=== PATIENT | female | born 1970 | race Hispanic/Latino ===

== ENCOUNTER → 2018-10-18 | Day surgery (SDC) | payer OTHER ==
[~2018-10-18] MED LIST: CEFDINIR125 MG/5 M PO; DEXTROMETHORPHAN PO; FENTANYL CITRATE/PF 100MCG/2 ML INJ ONE; MIDAZOLAM HCL 5MG/ML 2ML VIAL ONE; OMEPRAZOLE40 MG PO; PROMETHAZINE PO; PROPOFOL IV EMULSION 10 MG/ML 50 ML VIAL ONE
--- OUTSIDE RECORDS SUMMARY | 2018-10-18 05:42 | XMS REPORT | Clinical Summary ---
Author Author [facility] Organization [facility] Address Unknown Phone Unavailable Care Team Providers Care Firefighting Equipment Specialist Name Role Phone PCP Unavailable Allergies Active Allergy Reactions Severity Noted Date Comments No Known Allergies 12/09/2008 Current Medications Prescription Sig. Disp. Refills Start End Date Status Date Compression Socks, Large by Misc.(Non-Drug; Combo 2 Each 0 12/30/19 Active Misc Route) route. 17 Active Problems Problem Noted Date Vitamin D deficiency 07/01/2009 Unspecified gastritis and gastroduodenitis without mention of hemorrhage 03/24/2009 RUQ pain 12/09/2008 Encounters Date Type Specialty Care Team Description 02/23/2017 [facility] Radiology Rigo Petit, DO Encounter 12/29/2016 Hospital Lab Rigo Petit, DO Encounter 12/29/2016 Office Visit Internal Medicine Rigo Petit, DO Healthcare maintenance Sharona Muir (Primary Dx); J, ResidentMD Bilateral swelling of feet; Dysuria after 08/30/2016 Immunizations Name Dates Previously Given Next Due Influenza A (H1N1) Vac 03/24/2009 Injection Influenza Vaccine 12/25/2008 Tdap Tetanus, diphtheria, 06/26/2009 acellular pertussis Vaccine Family History Medical History Relation Name Comments Cancer Maternal Aunt breast cancer Diabetes Maternal Grandmother Diabetes Mother Hypertension Mother Relation Name Status Comments Brother Alive Brother Alive Daughter Alive Father Alive Maternal Aunt Maternal Grandfather Alive Maternal Grandmother Mother Alive Paternal Grandfather Paternal Grandmother Sister Alive Son Alive Son Alive Son Other Social History Tobacco Use Types Packs/Day Years Used Date Former Smoker Cigarettes 0.5 10 Comments: quit in 1998 smoked for 10 years off and on Alcohol Use Drinks/Week oz/Week Comments No Sex Assigned at Date Recorded Not on file Last Filed Vital Signs Vital Sign Reading Time Taken Blood Pressure 121/81 12/29/2016 1:21 PM CDT Pulse 92 12/29/2016 1:21 PM CDT Temperature 36.7 C (98.1 F) 12/29/2016 1:21 PM CDT Respiratory Rate 18 12/29/2016 1:21 PM CDT Oxygen Saturation - - Inhaled Oxygen - - Concentration Weight 90 kg (198 lb 8 oz) 12/29/2016 1:21 PM CDT Height 160 cm (5' 3") 12/29/2016 1:21 PM CDT Body Mass Index 35.16 12/29/2016 1:21 PM CDT Plan of Treatment Health Maintenance Due Date Last Done Comments CERVICAL CANCER SCRN (3 10/05/1992 YRS) BREAST CANCER SCRN 02/23/2018 02/23/2017 (YEARLY) Results * MAMMOGRAM BILAT SCREEN DIGITAL (02/23/2017 2:26 PM) Specimen Performing Laboratory SMS Impressions IMPRESSION: NEGATIVE There is no mammographic evidence of malignancy. A 1 year screening mammogram is recommended. I have reviewed the study and agree with the findings in the report. This document has been electronically signed. John garcia,ronald/kavin:02/23/2017 14:52:23 Stock Roller: Patricia KELLEY(R)(M), [facility] letter sent: Mammography Normal Mammogram BI-RADS: 1 Negative G0202 Z12.31 Narrative #[id number] - MAMMOGRAM BILAT SCREEN DIGITAL BILATERAL FIRST EVER DIGITAL SCREENING MAMMOGRAM 3D/2D WITH CAD: 02/23/2017 CLINICAL: 46 y/o female Maternal aunt with history of breast cancer.Screening. No prior exams were available for comparison. The tissue of both breasts is heterogeneously dense. This may lower the sensitivity of mammography. Tomosynthesis was used. Current study was also evaluated with a Computer Aided Detection (CAD) system. No significant masses, calcifications, or other findings are seen in either breast. There has been no significant interval change. Procedure Note Interface, Rad/Mammog In - 02/24/2017 7:14 AM CHEF & OWNER #[id number] - MAMMOGRAM BILAT SCREEN DIGITAL BILATERAL FIRST EVER DIGITAL SCREENING MAMMOGRAM 3D/2D WITH CAD: 02/23/2017 CLINICAL: 46 y/o female Maternal aunt with history of breast cancer.Screening. No prior exams were available for comparison. The tissue of both breasts is heterogeneously dense. This may lower the sensitivity of mammography. Tomosynthesis was used. Current study was also evaluated with a Computer Aided Detection (CAD) system. No significant masses, calcifications, or other findings are seen in either breast. There has been no significant interval change. IMPRESSION IMPRESSION: NEGATIVE There is no mammographic evidence of malignancy. A 1 year screening mammogram is recommended. I have reviewed the study and agree with the findings in the report. This document has been electronically signed. John garcia,ronald/kavin:02/23/2017 14:52:23 Stock Roller: Patricia Christianson RT(R)(M), [facility] letter sent: Mammography Normal Mammogram BI-RADS: 1 Negative G0202 Z12.31 * HIV-1/HIV-2 ROUTINE SCREENING (12/29/2016 2:03 PM) Component Value Ref Range HIV-1/HIV-2 Negative NEG Specimen Performing Laboratory MISYS * HEMOGLOBIN A1C (12/29/2016 2:03 PM) Component Value Ref Range Hemoglobin A1c 5.2 4.3 - 6.1 % Est Average Gluc 102.5 mg/dL Specimen Performing Laboratory Blood MISYS * COMPREHENSIVE METABOLIC PANEL(DBIL NOT INCLUDED) (12/29/2016 2:03 PM) Component Value Ref Range Albumin 3.8 3.4 - 5.0 g/dL Calcium 8.8 8.50 - 10.20 mg/dL CO2 27 21 - 32 mmol/L Chloride 106 98 - 107 mmol/L Creatinine 0.65 0.60 - 1.30 mg/dL Glucose 98 70 - 99 mg/dL Alk Phos 99 45 - 117 U/L Potassium 3.9 3.50 - 5.10 mmol/L Sodium 139 136 - 145 mmol/L ALT 28 12 - 78 U/L AST 15 15 - 37 U/L Urea Nitrogen 14 7 - 18 mg/dL T Bilirubin 0.9 0.2 - 1.0 mg/dL T Protein 7.2 6.4 - 8.2 g/dL GFR, Estimated >60 mL/min/1.73 m2 GFR, Estim, Afr-Am >60 mL/min/1.73 m2 Anion Gap 6 Specimen Performing Laboratory Blood MISYS * TSH (12/29/2016 2:03 PM) Component Value Ref Range TSH 0.56 0.36 - 3.74 uIU/mL Specimen Performing Laboratory Blood MISYS * LIPID PROFILE (12/29/2016 2:03 PM) Component Value Ref Range Cholesterol 201 (H) <200 mg/dL Comment: REFERENCE RANGE: Desirable: <200 mg/dL Borderline: 200-240 mg/dL High Risk: >240 mg/dL Triglyceride 101 <150 mg/dL Comment: REFERENCE RANGE: Normal: <150 mg/dL Borderline High: 150-199 mg/dL High: 200-499 mg/dL Very High: >zx=686 mg/dL HDL 73 (H) 40 - 60 mg/dL Comment: Increased CHD risk: <40 mg/dL Decreased CHD risk: >60 mg/dL LDL 108 mg/dL Comment: REFERENCE RANGE: Optimal: <100 mg/dL Near Optimal: 100-129 mg/dL Borderline High: 130-159 mg/dL High: 160-189 mg/dL Very High: >iu=691 mg/dL Specimen Performing Laboratory Blood MISYS * HEPATITIS PANEL (12/29/2016 2:03 PM) Component Value Ref Range HCV IgG Negative NEG HBsAg Negative NEG HAV, IgM Negative NEG HBcAb, IgM Negative NEG Specimen Performing Laboratory Blood MISYS * CBC/DIFF (12/29/2016 2:03 PM) Component Value Ref Range WBC 7.1 4.5 - 11.0 K/uL RBC 4.31 4.20 - 5.40 M/uL Hemoglobin 11.7 (L) 12.0 - 16.0 g/dL Hematocrit 38.1 37.0 - 47.0 % MCV 88 82 - 92 fL MCH 27.1 27.0 - 32.0 pg MCHC 30.7 (L) 32.0 - 36.0 g/dL RDW 43.9 36.4 - 46.3 fL Platelet 271 150 - 400 K/uL Mean Platelet Volume 11.0 9.4 - 12.4 fL Percent NRBC 0.6 Absolute NRBC 0.04 Neutrophil 54.4 34.0 - 70.0 % Lymphocyte 36.5 20.0 - 50.0 % Monocyte 6.9 5.0 - 12.0 % Eosinophil 1.0 0.7 - 5.0 % Basophil 0.8 0.1 - 1.2 % Pct Immat Gran 0.4 0.0 - 0.5 Neutrophil, Abs 3.86 1.56 - 6.13 K/uL Lymphocyte, Abs 2.59 1.18 - 3.74 K/uL Monocyte, Abs 0.49 (H) 0.24 - 0.36 K/uL Eosinophil, Abs 0.07 0.04 - 0.36 K/uL Basophil, Abs 0.06 0.01 - 0.08 K/uL Absol Immat Gran 0.03 0.00 - 0.03 K/uL Specimen Performing Laboratory Blood MISYS * UA CHEMISTRIES (12/29/2016 1:50 PM) Component Value Ref Range Color Yellow Clarity Clear Spec [place] 1.017 1.001 - 1.035 pH 6.0 5 - 8 Protein Negative NEG Glucose Negative NEG Ketone Negative NEG Bilirubin Negative NEG Nitrate Negative NEG Urobilinogen <1.0 0.2 - 1.0 EU/dL Leukocyte Negative NEG Blood 1+ (A) NEG WBC 1 0 - 5 /HPF Bacteria Few Epithelial Cell 3 /HPF Mucous Present Specimen Performing Laboratory Urine MISYS * URINE CULTURE (12/29/2016 1:50 PM) Component Value Ref Range Spec Description Clean catch urine Order Comments None Culture 1,000-10,000 CFU/ml Streptococcus beta hemolytic, group B Mixed uro-genital matt also present Report Status Final 12/31/2016 Specimen Performing Laboratory Urine clean catch - CLEAN MISYS CATCH URINE after 08/30/2016
--- OUTSIDE RECORDS SUMMARY | 2018-10-18 05:42 | XMS REPORT | Summary of Care ---
Author Author [facility] Organization [facility] Address Unknown Phone Unavailable Encounter HQ Dajuan(FIN) [id number] Date(s): 10/03/17 - 10/03/17 [facility] [address] [place], [place] [address]- [phone] Encounter Diagnosis Upper back pain (Discharge Diagnosis) - 10/03/17 Back muscle spasm (Discharge Diagnosis) - 10/03/17 Muscle spasm of back (Final) - 10/09/17 Pain in thoracic spine (Final) - Discharge Disposition: Home or Self Care Attending Physician: Donna Garcia MD Vital Signs Most recent to 1 2 oldest [Reference Range]: Height 160.02 cm (10/03/17 2:13 PM) Temperature Oral 97.1 DegF [96.4-99.1 DegF] (10/03/17 2:13 PM) Blood Pressure 119/72 mmHg 115/82 mmHg [90-140/60-90 mmHg] (10/03/17 3:50 PM) (10/03/17 2:13 PM) Respiratory Rate 18 BRMIN 18 BRMIN [14-20 BRMIN] (10/03/17 3:50 PM) (10/03/17 2:13 PM) Peripheral Pulse 70 bpm 84 bpm Rate [60-100 bpm] (10/03/17 3:50 PM) (10/03/17 2:13 PM) Weight 95.455 kg (10/03/17 2:13 PM) Body Mass Index 37.28 m2 (10/03/17 2:13 PM) Problem List No data available for this section Allergies, Adverse Reactions, Alerts Substance Reaction Severity Status NKDA Active Medications Flexeril 10 mg oral tablet 10 mg=1 tab, PO, QPM, PRN for spasm, X 10 day, # 10 tab, 0 Refill(s) Start Date: 10/03/17 Stop Date: 10/13/17 Status: Completed ibuprofen 800 mg oral tablet 800 mg=1 tab, PO, Q8H, X 5 day, # 15 tab, 0 Refill(s) Start Date: 10/03/17 Stop Date: 10/08/17 Status: Completed ketOROLAC 60 mg, 2 mL, Route: IM, Drug form: INJ, ONCE, Dosing Weight 95.455, kg, Priority : STAT, Start date: 10/03/17 14:36:00 CDT, Stop date: 10/03/17 14:36:00 CDT Notes: (Same as:Toradol) IV bolus must be given >15 seconds. Give IM administration slowly and deeply into the muscle.Not for use > 4 days MEDICATION WASTE Product Size: 60 mgProduct Wasted: ___ mg Start Date: 10/03/17 Stop Date: 10/03/17 Status: Completed Results No data available for this section Immunizations No data available for this section Procedures No data available for this section Social History Social History Type Response Smoking Status Never smoker; Exposure to Tobacco Smoke None; Cigarette Smoking Last 365 Days No; Reg Smoking Cessation Counseling No entered on: 10/03/17 Assessment and Plan No data available for this section
--- OUTSIDE RECORDS SUMMARY | 2018-10-18 05:42 | XMS REPORT | Summary of Care ---
Author Author [facility] Organization [facility] Address Unknown Phone Unavailable Encounter HQ Dajuan(FIN) [id number] Date(s): 10/03/17 - 10/03/17 [facility] [address] [place], [place] [address]- [phone] Encounter Diagnosis Upper back pain (Discharge Diagnosis) - 10/03/17 Back muscle spasm (Discharge Diagnosis) - 10/03/17 Discharge Disposition: Home or Self Care Attending [...] Start Date: 10/03/17 Stop Date: 10/13/17 Status: Ordered ibuprofen 800 mg oral tablet 800 mg=1 tab, PO, Q8H, X 5 day, # 15 tab, 0 Refill(s) Start Date: 10/03/17 Stop Date: 10/08/17 Status: Ordered ketOROLAC 60 mg, 2 mL, Route: IM, [...]
--- OUTSIDE RECORDS SUMMARY | 2018-10-18 05:42 | XMS REPORT | Clinical Summary ---
Author Author [facility] Organization [facility] Address Unknown Phone Unavailable Care Team Providers Care Load Out Person Name Role Phone PCP Unavailable Allergies Active [...] Date Type Specialty Care Team Description 02/23/2017 [facility] Radiology Rigo Petit, DO Encounter 12/29/2016 Hospital Lab Rigo Petit, DO Encounter 12/29/2016 Office Visit Internal Medicine Rigo Petit, DO Healthcare maintenance Sharona Muir (Primary Dx); J, ResidentMD Bilateral swelling of feet; Dysuria after 08/29/2016 Immunizations Name Dates Previously Given Next Due [...] has been electronically signed. John garcia,ronald/kavin:02/23/2017 14:52:23 Data Analytics Architect: Patricia KELLEY(R)(M), [facility] letter sent: Mammography Normal Mammogram BI-RADS: 1 Negative G0202 Z12.31 Narrative #[id number] - MAMMOGRAM BILAT SCREEN DIGITAL BILATERAL FIRST [...] Interface, Rad/Mammog In - 02/24/2017 7:14 AM AIRLINE SECURITY REPRESENTATIVE #[id number] - MAMMOGRAM BILAT SCREEN DIGITAL BILATERAL FIRST [...] has been electronically signed. John garcia,ronald/kavin:02/23/2017 14:52:23 Data Analytics Architect: Patricia Christianson RT(R)(M), [facility] letter sent: Mammography Normal [...] 150-199 mg/dL High: 200-499 mg/dL Very High: >zt=678 mg/dL HDL 73 (H) 40 - 60 mg/dL Comment: Increased CHD risk: <40 mg/dL Decreased CHD risk: >60 mg/dL LDL 108 mg/dL Comment: REFERENCE RANGE: Optimal: <100 mg/dL Near Optimal: 100-129 mg/dL Borderline High: 130-159 mg/dL High: 160-189 mg/dL Very High: >ce=219 mg/dL Specimen Performing Laboratory Blood MISYS * [...] Ref Range Color Yellow Clarity Clear Spec [place] 1.017 1.001 - 1.035 pH 6.0 5 [...] catch - CLEAN MISYS CATCH URINE after 08/29/2016
--- OUTSIDE RECORDS SUMMARY | 2018-10-18 05:42 | XMS REPORT | Summary of Care ---
Author Author [facility] [place] Organization [facility] [place] Address Unknown Phone Unavailable Encounter HQ Encntr_alias(FIN) [id number] Date(s): 05/19/17 - 05/19/17 [facility] Outpatient Imaging summer [address] [place], [place] [address] [id number] Encounter Diagnosis Unspecified internal derangement of left knee (Final) - 05/25/17 Chondromalacia, left knee (Final) - Discharge Disposition: Home or Self Care Attending Physician: Ike Jones MD Vital Signs No data available for this section Problem List No data available for this section Allergies, Adverse Reactions, Alerts Substance Reaction Severity Status NKDA Active Medications No data available for this section Results No data available for this section [...]
--- OUTSIDE RECORDS SUMMARY | 2018-10-18 05:42 | XMS REPORT | Summary of Care ---
Author Author [facility] Organization [facility] [place] Address Unknown Phone Unavailable Encounter HQ Zoyar_[email or web address](FIN) [id number] Date(s): 06/06/17 - 06/06/17 [facility] [place] Attending Physician: Khari Ledbetter MD Vital Signs No data available for this section Problem List No data available for this section Allergies, Adverse Reactions, Alerts Substance Reaction Severity Status NKDA Active Medications No data available for this section Results No data available for this section Immunizations No data available for this section Procedures No data available for this section Social History No data available for this section Assessment and Plan No data available for this section
--- OUTSIDE RECORDS SUMMARY | 2018-10-18 05:42 | XMS REPORT | Clinical Summary ---
Author Author [facility] Organization [facility] Address Unknown Phone Unavailable Care Team Providers Care Hoop Bender Tank Name Role Phone PCP Unavailable Allergies Active [...] Date Type Specialty Care Team Description 02/23/2017 [facility] Radiology Rigo Petit, DO Encounter 12/29/2016 Hospital Lab Rigo Petit, DO Encounter 12/29/2016 Office Visit Internal Medicine Rigo Petit, DO Healthcare maintenance Sharona Muir (Primary Dx); J, ResidentMD Bilateral swelling of feet; Dysuria after 09/09/2016 Immunizations Name Dates Previously Given Next Due [...] has been electronically signed. John garcia,ronald/kavin:02/23/2017 14:52:23 Tours Hostess: Patricia KELLEY(R)(M), [facility] letter sent: Mammography Normal Mammogram BI-RADS: 1 Negative G0202 Z12.31 Narrative #[id number] - MAMMOGRAM BILAT SCREEN DIGITAL BILATERAL FIRST [...] Interface, Rad/Mammog In - 02/24/2017 7:14 AM TIN PLATER #[id number] - MAMMOGRAM BILAT SCREEN DIGITAL BILATERAL FIRST [...] has been electronically signed. John garcia,ronald/kavin:02/23/2017 14:52:23 Tours Hostess: Patricia Christianson RT(R)(M), [facility] letter sent: Mammography [...] 150-199 mg/dL High: 200-499 mg/dL Very High: >rp=624 mg/dL HDL 73 (H) 40 - 60 mg/dL Comment: Increased CHD risk: <40 mg/dL Decreased CHD risk: >60 mg/dL LDL 108 mg/dL Comment: REFERENCE RANGE: Optimal: <100 mg/dL Near Optimal: 100-129 mg/dL Borderline High: 130-159 mg/dL High: 160-189 mg/dL Very High: >op=509 mg/dL Specimen Performing Laboratory Blood MISYS * [...] Ref Range Color Yellow Clarity Clear Spec [place] 1.017 1.001 - 1.035 pH 6.0 5 [...] catch - CLEAN MISYS CATCH URINE after 09/09/2016
--- OUTSIDE RECORDS SUMMARY | 2018-10-18 05:42 | XMS REPORT | Continuity of Care Document ---
Author Author [facility] Organization [facility] Address Unknown Phone Unavailable Care Team Providers Care School Aide Name Role Phone [facility] Unavailable Unavailable Problems Problem Status Onset Date Classification Date Reported Comments Source Muscle spasm of back 10/10/2017 04/22/2018 [facility] Upper back pain 10/03/2017 04/22/2018 [facility] Back muscle spasm 10/03/2017 04/22/2018 [facility] BACK PAIN Active 10/03/2017 [facility] LFT KNEE Active 05/30/2017 [facility] Unspecified internal derangement of left knee 05/26/2017 [facility]/12/[facility] M23.92 - UNSPECIFIED INTERNAL DERANGEME Active 05/02/2017 [facility] [employer] Vitamin D deficiency Active 07/01/2009 Problem 10/17/2017 [facility] Unspecified gastritis and gastroduodenitis without mention of hemorrhage Active 03/24/2009 Problem 10/17/2017 [facility] RUQ pain Active 12/09/2008 Problem 10/17/2017 [facility] Chondromalacia, left knee 04/12/2018 [facility] Pain in thoracic spine 04/22/2018 [facility] Medications Medication Details Route Status Patient Instructions Ordering Provider Order Date Source ibuprofen 800 mg oral tablet 800 mg=1 tab, PO, Q8H, X 5 day, # 15 tab, 0 Refill(s) No Longer Active 10/03/2017 [facility] Cyclobenzaprine hydrochloride 10 MG Oral Tablet [Flexeril] 10 mg=1 tab, PO, QPM, PRN for spasm, X 10 day, # 10 tab, 0 Refill(s) No Longer Active 10/03/2017 [facility] Ketorolac 60 mg, 2 mL, Route: IM, Drug form: INJ, ONCE, Dosing Weight 95.455, kg, Priority: STAT, Start date: 10/03/17 14:36:00 CDT, Stop date: 10/03/17 14:36:00 CDTNotes: (Same as:Toradol) IV bolus must be given >15 seconds. Give IM administration slowly and deeply into the muscle. Not for use > 4 days MEDICATION WASTE Product Size: 60 mg Product Wasted: ___ mg Inactive 10/03/2017 [facility] Compression Socks, Large Misc by Misc.(Non-Drug; Combo Route) route. Active 12/29/2016 [facility] Allergies, Adverse Reactions, Alerts No Known Medication Allergies Immunizations Immunization Date Given Site Status Last Updated Comments Source Tdap Tetanus, diphtheria, acellular pertussis Vaccine 06/26/2009 completed [facility] Influenza A (H1N1) Vac Injection 03/24/2009 completed [facility] Influenza Vaccine 12/25/2008 completed [facility] Results Order Name Results Value Reference Range Date Interpretation Comments Source MAMMOGRAM BILAT SCREEN DIGITAL <p>IMPRESSION: NEGATIVE</p><p>There is no mammographic evidence of malignancy. A 1 year </p><p>screening mammogram is recommended.</p><p> </p><p>I have reviewed the study and agree with the findings in the </p><p>report.</p><p> </p><p>This document has been electronically signed.</p><p> </p><p>John Pina</ p><p>ronald garcia/kavin:02/23/2017 14:52:23</p><p> </p><p>Engraver Letter: Patricia TURNER)(M), [facility]</p><p> Breast Imaging Center</p><p>letter sent: Mammography Normal</p><p>Mammogram BI-RADS: 1 Negative G0202 Z12.31</p> IMPRESSION: NEGATIVEThere is no mammographic evidence of malignancy. A 1 year screening mammogram is recommended. I have reviewed the study and agree with the findings in the report. This document has been electronically signed. ronald Delong/kavin:02/23/2017 14:52:23 Engraver Letter: Patricia TURNER)(M), [facility] Centerletter sent: Mammography NormalMammogram BI-RADS: 1 Negative G0202 Z12.31 02/23/2017 [facility] MAMMOGRAM BILAT SCREEN DIGITAL <p> </p><p>#[id number] - MAMMOGRAM BILAT SCREEN DIGITAL</p><p>BILATERAL FIRST EVER DIGITAL SCREENING MAMMOGRAM 3D/2D WITH CAD: </p><p>02/23/2017</p><p>CLINICAL: 46 y/o female Maternal aunt with history of breast </p><p>cancer.Screening.</p><p> </p><p>No prior exams were available for comparison.</p><p>The tissue of both breasts is heterogeneously dense. This may </p><p>lower the sensitivity of mammography.</p><p>Tomosynthesis was used.</p><p>Current study was also evaluated with a Computer Aided Detection </p><p>(CAD) system.</p><p>No significant masses, calcifications, or other findings are seen </p><p>in either breast.</p><p>There has been no significant interval change.</p><p> </p> #[id number] - MAMMOGRAM BILAT SCREEN DIGITALBILATERAL FIRST EVER DIGITAL SCREENING MAMMOGRAM 3D/2D WITH CAD: 02/23/2017CLINICAL: 46 y/o female Maternal aunt with history of breast cancer.Screening. No prior exams were available for comparison.The tissue of both breasts is heterogeneously dense. This may lower the sensitivity of mammography.Tomosynthesis was used.Current study was also evaluated with a Computer Aided Detection (CAD) system.No significant masses, calcifications, or other findings are seen in either breast.There has been no significant interval change. 02/23/2017 [facility] MAMMOGRAM BILAT SCREEN DIGITAL <p styleCode="header">Interface, Rad/Mammog In - 02/24/2017 7:14 AM [employer]</p><p>
<span>#[id number] - MAMMOGRAM BILAT SCREEN DIGITAL</span>
<span>BILATERAL FIRST EVER DIGITAL SCREENING MAMMOGRAM 3D/2D WITH CAD: </span>
<span&gt ;02/23/2017</span>
<span>CLINICAL: 46 y/o female Maternal aunt with history of breast </span>
<span>cancer.Screening. </span>

<span>No prior exams were available for comparison. </span>
<span>The tissue of both breasts is heterogeneously dense. This may </span>
<span>lower the sensitivity of mammography. </span>
<span>Tomosynthesis was used. </span>
<span>Current study was also evaluated with a Computer Aided Detection </span>
<span>(CAD) system. </span>
<span>No significant masses, calcifications, or other findings are seen </span>
<span>in either breast. </span>
<span>There has been no significant interval change.</span>

<span>IMPRESSION</span>
<span>IMPRESSION: NEGATIVE</span>
<span>There is no mammographic evidence of malignancy. A 1 year </span>
<span>screening mammogram is recommended. </span>

<span>I have reviewed the study and agree with the findings in the </span>
<span>report.</span>

<span>This document has been electronically signed.</span>

<span>John Pina</span>
<span>ronald garcia/kaivn:02/23/2017 14:52:23 </span>

<span>Engraver Letter: Patricia KELLEY(R)(M), [facility]</span>
<span> Breast Imaging Center</span>
<span>letter sent: Mammography Normal </span>
<span>Mammogram BI-RADS: 1 Negative G0202 Z12.31</span></p> Interface, Rad/Mammog In - 02/24/2017 7:14 AM [employer] #[id number] - MAMMOGRAM BILAT SCREEN DIGITAL BILATERAL FIRST [...] has been electronically signed. John garcia,ronald/kavin:02/23/2017 14:52:23 Engraver Letter: Patricia KELLEY(R)(M), [facility] letter sent: Mammography Normal Mammogram BI-RADS: 1 Negative G0202 Z12.31 02/23/2017 [facility] CBC/DIFF WBC 7.1 4.5 - 11 12/29/2016 [facility] CBC/DIFF RBC 4.31 M/uL 4.20 - 5.40 12/29/2016 [facility] CBC/DIFF Hemoglobin 11.7 12 - 16 12/29/2016 Low [facility] CBC/DIFF Hematocrit 38.1 37 - 47 12/29/2016 [facility] CBC/DIFF MCV 88 82 - 92 12/29/2016 [facility] CBC/DIFF MCH 27.1 27 - 32 12/29/2016 [facility] CBC/DIFF MCHC 30.7 32 - 36 12/29/2016 Low [facility] CBC/DIFF RDW 43.9 36.4 - 46.3 12/29/2016 [facility] CBC/DIFF Platelet 271 150 - 400 12/29/2016 [facility] CBC/DIFF Mean Platelet Volume 11.0 9.4 - 12.4 12/29/2016 [facility] CBC/DIFF Percent NRBC 0.6 12/29/2016 [facility] CBC/DIFF Absolute NRBC 0.04 12/29/2016 [facility] CBC/DIFF Neutrophil 54.4 34 - 70 12/29/2016 [facility] CBC/DIFF Lymphocyte 36.5 20 - 50 12/29/2016 [facility] CBC/DIFF Monocyte 6.9 5 - 12 12/29/2016 [facility] CBC/DIFF Eosinophil 1.0 0.7 - 5 12/29/2016 [facility] CBC/DIFF Basophil 0.8 0.1 - 1.2 12/29/2016 [facility] CBC/DIFF Pct Immat Gran 0.4 0.0 - 0.5 12/29/2016 [facility] CBC/DIFF Neutrophil, Abs 3.86 1.56 - 6.13 12/29/2016 [facility] CBC/DIFF Lymphocyte, Abs 2.59 1.18 - 3.74 12/29/2016 [facility] CBC/DIFF Monocyte, Abs 0.49 0.24 - 0.36 12/29/2016 High [facility] CBC/DIFF Eosinophil, Abs 0.07 0.04 - 0.36 12/29/2016 [facility] CBC/DIFF Basophil, Abs 0.06 0.01 - 0.08 12/29/2016 [facility] CBC/DIFF Absol Immat Gran 0.03 0 - 0.03 12/29/2016 [facility] CBC/DIFF Lab Interpretation Abnormal 12/29/2016 [facility] COMPREHENSIVE METABOLIC PANEL(DBIL NOT INCLUDED) Albumin 3.8 3.4 - 5 12/29/2016 [facility] COMPREHENSIVE METABOLIC PANEL(DBIL NOT INCLUDED) Calcium 8.8 8.5 - 10.2 12/29/2016 [facility] COMPREHENSIVE METABOLIC PANEL(DBIL NOT INCLUDED) CO2 27 21 - 32 12/29/2016 [facility] COMPREHENSIVE METABOLIC PANEL(DBIL NOT INCLUDED) Chloride 106 98 - 107 12/29/2016 [facility] COMPREHENSIVE METABOLIC PANEL(DBIL NOT INCLUDED) Creatinine 0.65 0.6 - 1.3 12/29/2016 [facility] COMPREHENSIVE METABOLIC PANEL(DBIL NOT INCLUDED) Glucose 98 70 - 99 12/29/2016 [facility] COMPREHENSIVE METABOLIC PANEL(DBIL NOT INCLUDED) Alk Phos 99 45 - 117 12/29/2016 [facility] COMPREHENSIVE METABOLIC PANEL(DBIL NOT INCLUDED) Potassium 3.9 3.5 - 5.1 12/29/2016 [facility] COMPREHENSIVE METABOLIC PANEL(DBIL NOT INCLUDED) Sodium 139 136 - 145 12/29/2016 [facility] COMPREHENSIVE METABOLIC PANEL(DBIL NOT INCLUDED) ALT 28 12 - 78 12/29/2016 [facility] COMPREHENSIVE METABOLIC PANEL(DBIL NOT INCLUDED) AST 15 15 - 37 12/29/2016 [facility] COMPREHENSIVE METABOLIC PANEL(DBIL NOT INCLUDED) Urea Nitrogen 14 7 - 18 12/29/2016 [facility] COMPREHENSIVE METABOLIC PANEL(DBIL NOT INCLUDED) T Bilirubin 0.9 0.2 - 1 12/29/2016 [facility] COMPREHENSIVE METABOLIC PANEL(DBIL NOT INCLUDED) T Protein 7.2 6.4 - 8.2 12/29/2016 [facility] COMPREHENSIVE METABOLIC PANEL(DBIL NOT INCLUDED) GFR, Estimated >60 mL/min/1.73 m2 12/29/2016 [facility] COMPREHENSIVE METABOLIC PANEL(DBIL NOT INCLUDED) GFR, Estim, Afr-Am >60 mL/min/1.73 m2 12/29/2016 [facility] COMPREHENSIVE METABOLIC PANEL(DBIL NOT INCLUDED) Anion Gap 6 12/29/2016 [facility] HEMOGLOBIN A1C Hemoglobin A1c 5.2 4.3 - 6.1 12/29/2016 [facility] HEMOGLOBIN A1C Est Average Gluc 102.5 12/29/2016 [facility] HEPATITIS PANEL HCV IgG Negative NEG 12/29/2016 [facility] HEPATITIS PANEL HBsAg Negative NEG 12/29/2016 [facility] HEPATITIS PANEL HAV, IgM Negative NEG 12/29/2016 [facility] HEPATITIS PANEL HBcAb, IgM Negative NEG 12/29/2016 [facility] HIV-1/HIV-2 ROUTINE SCREENING HIV-1/HIV-2 Negative NEG 12/29/2016 [facility] LIPID PROFILE Cholesterol 201 <200 12/29/2016 High REFERENCE RANGE:
Desirable: <200 mg/dL
Borderline: 200-240 mg/dL
High Risk: >240 mg/dL

[facility] LIPID PROFILE Triglyceride 101 <150 12/29/2016 REFERENCE RANGE:
Normal: <150 mg/dL
Borderline High: 150-199 mg/dL
High: 200-499 mg/dL
Very High: >ou=506 mg/dL

[facility] LIPID PROFILE HDL 73 40 - 60 12/29/2016 High Increased CHD risk: <40 mg/dL
Decreased CHD risk: >60 mg/dL

[facility] LIPID PROFILE LDL 108 12/29/2016 REFERENCE RANGE:
Optimal: <100 mg/dL
Near Optimal: 100-129 mg/dL
Borderline High: 130-159 mg/dL
High: 160-189 mg/dL
Very High: >ub=446 mg/dL

[facility] LIPID PROFILE Lab Interpretation Abnormal 12/29/2016 [facility] TSH TSH 0.56 uIU/mL 0.36 - 3.74 12/29/2016 [facility] UA CHEMISTRIES Color Yellow 12/29/2016 [facility] UA CHEMISTRIES Clarity Clear 12/29/2016 [facility] UA CHEMISTRIES Spec [place] 1.017 1.001 - 1.035 12/29/2016 [facility] UA CHEMISTRIES pH 6.0 5 - 8 12/29/2016 [facility] UA CHEMISTRIES Protein Negative NEG 12/29/2016 [facility] UA CHEMISTRIES Glucose Negative NEG 12/29/2016 [facility] UA CHEMISTRIES Ketone Negative NEG 12/29/2016 [facility] UA CHEMISTRIES Bilirubin Negative NEG 12/29/2016 [facility] UA CHEMISTRIES Nitrate Negative NEG 12/29/2016 [facility] UA CHEMISTRIES Urobilinogen <1.0 0.2 - 1 12/29/2016 [facility] UA CHEMISTRIES Leukocyte Negative NEG 12/29/2016 [facility] UA CHEMISTRIES Blood 1+ NEG 12/29/2016 Abnormal [facility] UA CHEMISTRIES WBC 1 /HPF 0 - 5 12/29/2016 [facility] UA CHEMISTRIES Bacteria Few 12/29/2016 [facility] UA CHEMISTRIES Epithelial Cell 3 /HPF 12/29/2016 [facility] UA CHEMISTRIES Mucous Present 12/29/2016 [facility] UA CHEMISTRIES Lab Interpretation Abnormal 12/29/2016 [facility] URINE CULTURE Culture Culture 1,000-10,000 CFU/ml Streptococcus beta hemolytic, group B Mixed uro-genital matt also present 12/29/2016 [facility] Pathology Reports No Data Provided for This Section Diagnostic Reports Report Value Date Source Spine thoracic 2 views DX Clinical Indication: - right mid back pain Comparison: None FINDINGS: AP and lateral views of the thoracic spine are submitted. There is normal alignment of the thoracic spine. There are no fractures or subluxations. The anterior paraspinal soft tissues are unremarkable. The disc spaces are unremarkable. Anterior and lateral spurs are visible at multiple lower thoracic levels. The visualized posterior elements are unremarkable. The costovertebral junctions are unremarkable. If there is further concern or neurological abnormalities on clinical exam, recommend CT or MRI of the thoracic spine for complete assessment. IMPRESSION: 1. Mild degenerative spurring is present at multiple lower thoracic levels. 2. No fracture or subluxation is seen on this exam. SL: 82 10/03/2017 [facility] Knee wo contrast MRI EXAM: MR LEFT KNEE WITHOUT CONTRAST DATE: 05/19/2017 3:24 PM [employer] INDICATION: Left knee pain along posterior medial aspects. No history of recent trauma. COMPARISON: No prior magnetic resonance imaging available for comparison. Same day radiograph correlation. TECHNIQUE: Multiplanar, multisequence noncontrast imaging of the knee. FINDINGS: Menisci: Medial meniscus: Intact. Lateral meniscus: Intact. Ligaments: There is degeneration of the anterior cruciate ligament. There is development of a ganglion cyst along the femoral origin, extending into the substance of the anterior cruciate ligament. This measures approximately 1.2 x 0.9 x 1.7 cm. Posterior cruciate ligament is intact. Collateral ligaments are intact. Extensor mechanism: The quadriceps tendon, patella and the patellar tendon are intact. Muscles: No signal abnormality in the muscles. Cartilage: Medial cartilage: No definitive chondral defects. Lateral cartilage: There is focal T2 signal within the lateral to the patella cartilage. No definitive overlying defect. Patellofemoral cartilage: No definitive chondral defects. Bone: No fractures identified. Visualized bone marrow signal is within normal limits. Soft tissue: Within normal limits. No abnormality of the neurovascular structures. Fluid: No significant joint effusion. There is a small Mortensen's cyst. IMPRESSION: 1. 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 Anterior cruciate ligament is otherwise intact and maintains normal orientation. No evidence of acute anterior cruciate ligament tear. 2. Lateral tibial plateau chondromalacia. 3. Small Mortensen's cyst. SL: [id number] 05/19/2017 [facility] [place] Knee 3 views DX Study: Knee 3 views DX 05/19/2017 3:19 PM [employer] Ordering Physician: Ike Jones MD Clinical Indication: Intermittent left knee pain for 6 months. There is no known trauma. Comparison: None FINDINGS: Images of the left knee demonstrate no evidence for fracture, dislocation or destructive lesion. No osteoarthritic changes are seen. There is no evidence for joint effusion. No other soft tissue abnormalities are appreciated. IMPRESSION: Normal images of the left knee. [id number] 05/19/2017 [facility] [place] Consultation Notes No Data Provided for This Section Discharge Summaries No Data Provided for This Section History and Physicals No Data Provided for This Section Vital Signs Vital Sign Value Date Comments Source Respitory Rate 18 10/03/2017 [facility] Heart Rate 70 10/03/2017 [facility] Systolic (mm Hg) 119 10/03/2017 [facility] Diastolic (mm Hg) 72 10/03/2017 [facility] BMI Calculated 37.28 10/03/2017 [facility] Weight 95.455 10/03/2017 [facility] Temperature Oral (F) 97.1 F 10/03/2017 [facility] Height 160.02 cm 10/03/2017 [facility] Heart Rate 84 10/03/2017 [facility] Respitory Rate 18 10/03/2017 [facility] Systolic (mm Hg) 115 10/03/2017 [facility] Diastolic (mm Hg) 82 10/03/2017 [facility] Systolic (mm Hg) 121 12/29/2016 [facility] Diastolic (mm Hg) 81 12/29/2016 [facility] Heart Rate 92 12/29/2016 [facility] Temperature Oral (F) 36.72 Jojo 12/29/2016 [facility] Respitory Rate 18 12/29/2016 [facility] Height 160 cm 12/29/2016 [facility] Weight 90.039 12/29/2016 [facility] BMI Calculated 35.16 12/29/2016 [facility] Encounters Location Location Details Encounter Type Encounter Number Reason For Visit Attending Provider ADM Date DC Date Status Source [facility] [place] Office Visit [id number] Healthcare maintenance Bilateral swelling of feet Dysuria Rigo Petit DO 12/29/2016 12/29/2016 [facility] [id number] Rigo Petit DO 12/29/2016 12/30/2016 [facility] [place] [facility] [id number] Rigo Petit DO 02/23/2017 02/24/2017 [facility] [place] [facility] [id number] Ike Jones 05/19/2017 05/20/2017 [facility] [place] [facility] [place] [facility] Patients [id number] Khari Willett IV 06/06/2017 06/06/2017 [id number] [facility] Emergency [id number] Donna Garcia 10/03/2017 10/03/2017 [facility] Procedures No Data Provided for This Section Assessment and Plan No Data Provided for This Section Plan of Care Plan of Care Date Source Breast Cancer Scrn (Yearly) 02/23/2018 [facility] IMM Influenza Seasonal Dec to May (>/=19 yrs) 12/11/2017 [facility] Cervical Cancer Scrn (3 Yrs) 10/05/1992 [facility] Social History Social History Date Source Social History TypeResponse Smoking Status Never smoker; Exposure to Tobacco Smoke None; Cigarette Smoking Last 365 Days No; Reg Smoking Cessation Counseling No entered on: 10/03/17 10/03/2017 [facility] Social History TypeResponse Smoking Status Never smoker; Exposure to Tobacco Smoke None; Cigarette Smoking Last 365 Days No; Reg Smoking Cessation Counseling No entered on: 10/03/17 10/03/2017 [facility] No data available for this section 06/06/2017 [id number] Tobacco UseTypesPacks/DayYears UsedDate Former Smoker Cigarettes 0.5 10 Comments: quit in 1998 smoked for 10 years off and on Alcohol UseDrinks/Weekoz/WeekComments No Sex Assigned at BirthDate Recorded Not on file 06/26/2009 [facility] Family History Value Date Source Medical HistoryRelationNameComments Cancer Maternal Aunt breast cancer Diabetes Maternal Grandmother Diabetes Mother Hypertension Mother RelationNameStatusComments Brother Alive Brother Alive Daughter Alive Father Alive Maternal Aunt Maternal Grandfather Alive Maternal Grandmother Mother Alive Paternal Grandfather Paternal Grandmother Sister Alive Son Alive Son Alive Son Other 10/17/2017 [facility] Medical HistoryRelationNameComments Cancer Maternal Aunt breast cancer Diabetes Maternal Grandmother Diabetes Mother Hypertension Mother RelationNameStatusComments Brother Alive Brother Alive Daughter Alive Father Alive Maternal Aunt Maternal Grandfather Alive Maternal Grandmother Mother Alive Paternal Grandfather Paternal Grandmother Sister Alive Son Alive Son Alive Son Other 10/12/2017 [facility] Medical HistoryRelationNameComments Cancer Maternal Aunt breast cancer Diabetes Maternal Grandmother Diabetes Mother Hypertension Mother RelationNameStatusComments Brother Alive Brother Alive Daughter Alive Father Alive Maternal Aunt Maternal Grandfather Alive Maternal Grandmother Mother Alive Paternal Grandfather Paternal Grandmother Sister Alive Son Alive Son Alive Son Other 10/03/2017 [facility] Medical HistoryRelationNameComments Cancer Maternal Aunt breast cancer Diabetes Maternal Grandmother Diabetes Mother Hypertension Mother RelationNameStatusComments Brother Alive Brother Alive Daughter Alive Father Alive Maternal Aunt Maternal Grandfather Alive Maternal Grandmother Mother Alive Paternal Grandfather Paternal Grandmother Sister Alive Son Alive Son Alive Son Other 09/10/2017 [facility] Medical HistoryRelationNameComments Cancer Maternal Aunt breast cancer Diabetes Maternal Grandmother Diabetes Mother Hypertension Mother RelationNameStatusComments Brother Alive Brother Alive Daughter Alive Father Alive Maternal Aunt Maternal Grandfather Alive Maternal Grandmother Mother Alive Paternal Grandfather Paternal Grandmother Sister Alive Son Alive Son Alive Son Other 08/31/2017 [facility] Medical HistoryRelationNameComments Cancer Maternal Aunt breast cancer Diabetes Maternal Grandmother Diabetes Mother Hypertension Mother RelationNameStatusComments Brother Alive Brother Alive Daughter Alive Father Alive Maternal Aunt Maternal Grandfather Alive Maternal Grandmother Mother Alive Paternal Grandfather Paternal Grandmother Sister Alive Son Alive Son Alive Son Other 08/30/2017 [facility] Advance Directives No Data Provided for This Section Functional Status No Data Provided for This Section
--- OUTSIDE RECORDS SUMMARY | 2018-10-18 05:42 | XMS REPORT | Clinical Summary ---
Author Author [facility] Organization [facility] Address Unknown Phone Unavailable Care Team Providers Care Core Maker Helper Name Role Phone PCP Unavailable Allergies Active [...] Date Type Specialty Care Team Description 02/23/2017 [facility] Radiology Rigo Petit, DO Encounter 12/29/2016 Hospital Lab Rigo Petit, DO Encounter 12/29/2016 Office Visit Internal Medicine Rigo Petit, DO Healthcare maintenance Sharona Muir (Primary Dx); J, Fellow() Bilateral swelling of feet; Dysuria after 10/02/2016 Immunizations Name Dates Previously Given Next Due [...] Health Maintenance Due Date Last Done Comments Cervical Cancer Scrn (3 10/05/1992 Yrs) IMM Influenza Seasonal 12/11/2017Dec to May (>/=19 yrs) Breast Cancer Scrn 02/23/2018 02/23/2017 (Yearly) Results * MAMMOGRAM BILAT SCREEN DIGITAL (02/23/2017 2:26 PM) Specimen Performing Laboratory SMS Impressions IMPRESSION: NEGATIVE There is no mammographic evidence of malignancy. A 1 year screening mammogram is recommended. I have reviewed the study and agree with the findings in the report. This document has been electronically signed. ronald Gallardo/kavin:02/23/2017 14:52:23 Field Underwriter: Patricia KELLEY(R)(M), [facility] letter sent: Mammography Normal Mammogram BI-RADS: 1 Negative G0202 Z12.31 Narrative #[id number] - MAMMOGRAM BILAT SCREEN DIGITAL BILATERAL FIRST [...] Interface, Rad/Mammog In - 02/24/2017 7:14 AM [employer] #[id number] - MAMMOGRAM BILAT SCREEN DIGITAL BILATERAL FIRST [...] This document has been electronically signed. ronald Marvin M.D./kavin:02/23/2017 14:52:23 Field Underwriter: Patricia KELLEY(R)(M), [facility] [...] 150-199 mg/dL High: 200-499 mg/dL Very High: >yc=884 mg/dL HDL 73 (H) 40 - 60 mg/dL Comment: Increased CHD risk: <40 mg/dL Decreased CHD risk: >60 mg/dL LDL 108 mg/dL Comment: REFERENCE RANGE: Optimal: <100 mg/dL Near Optimal: 100-129 mg/dL Borderline High: 130-159 mg/dL High: 160-189 mg/dL Very High: >yc=648 mg/dL Specimen Performing Laboratory Blood [facility] * [...] Ref Range Color Yellow Clarity Clear Spec [place] 1.017 1.001 - 1.035 pH 6.0 5 [...] catch - CLEAN [facility] CATCH URINE after 10/02/2016
--- OUTSIDE RECORDS SUMMARY | 2018-10-18 05:43 | XMS REPORT | Clinical Summary ---
Author Author [facility] Organization [facility] Address Unknown Phone Unavailable Care Team Providers Care Unhairer Name Role Phone PCP Unavailable Allergies Active [...] Date Type Specialty Care Team Description 02/23/2017 [facility] Radiology Rigo Petit, DO Encounter 12/29/2016 Hospital Lab Rigo Petit, DO Encounter 12/29/2016 Office Visit Internal Medicine Rigo Petit, DO Healthcare maintenance Sharona Muir (Primary Dx); J, Fellow() Bilateral swelling of feet; Dysuria after 10/16/2016 Immunizations Name Dates Previously Given Next Due [...] has been electronically signed. 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 ronald Marvin M.D./kavin:02/23/2017 14:52:23 Care Advocate: Patricia KELLEY(R)(M), [facility] letter sent: Mammography Normal [...] 150-199 mg/dL High: 200-499 mg/dL Very High: >zx=823 mg/dL HDL 73 (H) 40 - 60 mg/dL Comment: Increased CHD risk: <40 mg/dL Decreased CHD risk: >60 mg/dL LDL 108 mg/dL Comment: REFERENCE RANGE: Optimal: <100 mg/dL Near Optimal: 100-129 mg/dL Borderline High: 130-159 mg/dL High: 160-189 mg/dL Very High: >qa=812 mg/dL Specimen Performing Laboratory Blood MISYS * [...] Ref Range Color Yellow Clarity Clear Spec [place] 1.017 1.001 - 1.035 pH 6.0 5 [...] catch - CLEAN MISYS CATCH URINE after 10/16/2016
--- OUTSIDE RECORDS SUMMARY | 2018-10-18 05:43 | XMS REPORT ---
[facility] Address Unknown Phone Unavailable Care Team Providers Care General Milling Superintendent Name Role Phone Unavailable Unavailable Payers Payer Name Policy Type Policy Number Effective Date Expiration Date Problems This patient has no known problems. Allergies, Adverse Reactions, Alerts Allergy Name Allergy Type Status Severity Reaction(s) Onset Date Inactive Date Treating Clinician Comments No Known Contrast Allergies DA Active U 2008-07-27 00:00:00 No Known Drug Allergies DA Active U 2008-07-27 00:00:00 No Known Food Allergies DA Active U 2008-07-27 00:00:00 No Known Other Allergies DA Active U 2008-07-27 00:00:00 Medications This patient has no known medications. Encounters Start Date/Time End Date/Time Encounter Type Admission Type Attending Clinicians Care Facility Care Department Encounter ID 2017-02-23 13:59:36 2017-02-23 13:59:36 Outpatient [facility] [id number] 2016-12-29 13:56:41 2016-12-29 13:56:41 Outpatient [facility] [id number] 2016-12-29 13:21:23 2016-12-29 13:21:23 Outpatient [facility] [id number]
--- OUTSIDE RECORDS SUMMARY | 2018-10-18 05:43 | XMS REPORT | Clinical Summary ---
Author Author [facility] Organization [facility] Address Unknown Phone Unavailable Care Team Providers Care Data Librarian Name Role Phone PCP Unavailable Allergies Active [...] Date Type Specialty Care Team Description 02/23/2017 [facility] Radiology Rigo Petit, DO Encounter 12/29/2016 Hospital Lab Rigo Petit, DO Encounter 12/29/2016 Office Visit Internal Medicine Rigo Petit, DO Healthcare maintenance Sharona Muir (Primary Dx); J, Fellow() Bilateral swelling of feet; Dysuria after 10/11/2016 Immunizations Name Dates Previously Given Next Due [...] has been electronically signed. 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 ronald Marvin M.D./kavin:02/23/2017 14:52:23 Shank Taper: Patricia KELLEY(R)(M), [facility] letter sent: Mammography [...] 150-199 mg/dL High: 200-499 mg/dL Very High: >kp=188 mg/dL HDL 73 (H) 40 - 60 mg/dL Comment: Increased CHD risk: <40 mg/dL Decreased CHD risk: >60 mg/dL LDL 108 mg/dL Comment: REFERENCE RANGE: Optimal: <100 mg/dL Near Optimal: 100-129 mg/dL Borderline High: 130-159 mg/dL High: 160-189 mg/dL Very High: >eo=451 mg/dL Specimen Performing Laboratory Blood MISYS * [...] Ref Range Color Yellow Clarity Clear Spec [place] 1.017 1.001 - 1.035 pH 6.0 5 [...] catch - CLEAN MISYS CATCH URINE after 10/11/2016
--- OUTSIDE RECORDS SUMMARY | 2018-10-18 05:43 | XMS REPORT | Summary of Care ---
Author Author Joseph Foley M.A. Unknown Address Unknown Phone Unavailable Care Team Providers Care Materials Scientist Name Role Phone CELSO DUBOSE M.D. 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 * Quantity: 30 Refills: 1 CELSO DUBOSE M.D. * Start : 30-May-2017 Active Allergies and Adverse Reactions Name Dates Details No Known Drug Allergies (Allergy) Status: Active Past Medical History Name Dates Details History of No significant past medical history Status: Resolved Procedures Procedure Dates Details Procedures not documented Immunization Name Dates Details Immunizations not documented Family History Name Dates Details Family history of Diabetes (250.00, E11.9) Status: Active Family history of High blood pressure (401.9, I10) Status: Active Family history of Arthritis (716.90, M19.90) Status: Active Social History Name Dates Details - Status: Name Dates Details Never smoker Vital Signs Date Test Result Details No Known Vitals to report Results Date Description Value Details Results not documented Plan of Care Name Dates Details Planned Observations Planned Goals not documented Interventions Provided Medications/Immunizations Administered* MethylPREDNISolone Acetate 40 MG/ML Injection Suspension Plan* Completed at Today's Appointment: * Injection * Patient Education/Instructions: * Patient Education Provided * Reassurance * Counseling Provided - Discussed with Family/Patient * Family/Patient given opportunity to ask questions. * Family/Patient Verbalized Understanding. * Family/Patient informed will continue to monitor. * Orders: * Physical Therapy * Follow Up: * Please schedule an appointment as needed for any future problems or concerns. Instructions Name Dates Details Instructions not documented Encounters Appointment; CELSO DUBOSE M.D. Encounter Diagnosis: Problem not documented On: 30-May-2017 15:20 Appointment; CELSO DUBOSE M.D. Encounter Diagnosis: Problem not documented On: 11-Jul-2017 14:10 Appointment; CELSO DUBOSE M.D. Encounter Diagnosis: Problem not documented On: 17-Oct-2017 15:45
--- OUTSIDE RECORDS SUMMARY | 2018-10-18 05:43 | XMS REPORT | Summary of Care ---
Author Author CELSO DUBOSE M.D. Organization Unknown Address Unknown Phone Unavailable Care Team Providers Care Senior Technical Manager Name Role Phone CELSO DUBOSE M.D. Unavailable [...]
--- NOTE | 2018-10-18 07:10 | NUR ---
SPIRITUAL CARE - Pre-Surgery Assessment: Pt in bed. Pt's daughter at bedside. Pt reported supportive attention from family and friends. Intervention: I provided pastoral presence, hospitality, and sympathetic listening. I acquainted pt with availability of first mate while hospitalized. Outcome: Pt expressed appreciation for visit. No need for follow up indicated at this time. DIAZ [facility] Spiritual Care Department O: [phone] Pager: [phone] ([phone] number calling from)
[2018-10-18 08:43] VITALS: BP 112/79
== END | disposition home or self-care (01) ==
LOC: OR 05:39
PROVIDERS: ATTEND Internal Medicine Gastroenterology
DX: R10.13 Epigastric pain (principal); Z71.3 Dietary counseling and surveillance; E66.9 Obesity, unspecified; Z68.37 Body mass index [BMI] 37.0-37.9, adult; K64.8 Other hemorrhoids
CPT/HCPCS: 45378; 81025; J2250; J2704; J3010; 43239